=== PATIENT | female | born 1965 | race African-American/Black ===

== ENCOUNTER 2021-06-01 03:14 | Inpatient (IN) | payer OTHER ==
[~2021-06-01] VITALS: Ht 167.6 cm; Wt 94.3 kg
[2021-06-01 03:19] VITALS: BP 158/83
[2021-06-01] MEDS ORDERED: TRIAMTERENE/HCT1 CA1 PO (03:25)
[2021-06-01] MEDS ORDERED: NORVASC10 MG PO (03:25)
[2021-06-01 05:01] LABS: HEMATOCRIT 38.4 % (37.0-47.0); HEMOGLOBIN 12.8 gm/dL (12.0-15.0); MCH 30.8 pg (26.0-34.0); MCHC 33.5 g/dL (28.0-37.0); MCV 92.1 fL (80.0-100.0); RBC 4.17 mil/uL (4.20-5.00); RDW 12.5 % (10.5-14.5); WBC 5.7 thou/uL (4.0-11.0)
[2021-06-01 05:16] LABS: ANION GAP 8 mmol/L (7-16); BUN 14 mg/dL (7-18); CALCIUM 8.8 mg/dL (8.5-10.1); CHLORIDE 108 mmol/L (98-107); CO2 28 mmol/L (21-32); GLUCOSE 85 mg/dL (74-106); POTASSIUM 3.9 mmol/L (3.5-5.1); SODIUM 144 mmol/L (136-145)
[2021-06-01 05:24] LABS: ALBUMIN 3.3 g/dL (3.4-5.0); AMP/METHAMP Negative (Negative); BARBITURATES Negative (Negative); BENZODIAZEPINES Negative (Negative); COCAINE Negative (Negative); METHADONE Negative (Negative); OPIATES Negative (Negative); PCP Negative (Negative); SALICYLATE < 2.8 mg/dL (2.8-20.0); SGOT 27 U/L (15-37); SGPT 32 U/L (14-59); TOTAL BILIRUBIN 0.2 mg/dL (0.2-1.0); TOTAL PROTEIN 7.9 g/dL (6.4-8.2)
--- NOTE | 2021-06-01 09:25 | NUR ---
I WAS INFORMED BY DR MCKEE THAT [facility] WAS RECOMMENDING PLACEMENT FOR THE PT.
[2021-06-01 09:33] VITALS: BP 154/101
--- NOTE | 2021-06-01 09:34 | NUR ---
PT IS AN EMPLOYEE AT [employer] AND PT REQUESTED I CALL AND TELL THE EMAIL CAMPAIGN MANAGER THAT SHE WILL NOT BE IN TODAY. AT 0936 I TALKED THE EMAIL CAMPAIGN MANAGER EDMOND AND INFORMED HER THAT THE PT WOULD NOT BE IN TODAY. NO ADDITIONAL INFORMATION WAS PROVIDED RELATED TO THE REASON BEING IN THE ER OR ANY LONGER TERM PLANS.
--- NOTE | 2021-06-01 12:01 | NUR ---
WITH THE CHARGE NURSE APPROVAL THE PT WAS ALLOWED TO USE THE PHONE IN THE ROOM TO CALL FAMILY.
[2021-06-01 20:44] LABS: MAGNESIUM 2.2 mg/dL (1.8-2.4); PHOSPHORUS 3.4 mg/dL (2.5-4.9)
[2021-06-01 21:17] LABS: FOLIC ACID 8.5 ng/mL (8.6-58.9)
[2021-06-01 22:38] VITALS: BP 163/94
[2021-06-01] MEDS ORDERED: VENLAFAXINE HCL75 MG PO (22:51)
[2021-06-01] MEDS ORDERED: OMEPRAZOLE20 M2 PO (22:51)
[2021-06-01 23:26] VITALS: BP 158/94
--- NOTE | 2021-06-02 01:25 | NUR ---
PT ADMITTED FROM ER ALERT AND ORIENTED X4. VSS AFEBRILE. SATS WNL. WALKS WITH STEADY GAIT TO BR STANDBY ASSISTANCE. PLACED ON FALL PRECAUTIONS DUE TO ETOH W/D PRECAUTINS. SITTER 1:1 AT DOOR FOR DIRECT OBS. NO S/S ETOH W/D YET. PT STATES HAS MODERATE CASILLAS FROM COVID. NONPRODUCTIVE COUGH NOTED. PT UNLABORED ON RA. NS AT 126 INFUSING L FA. NO S/S DISTRESS PRESENTLY.
[2021-06-02 04:30] VITALS: BP 144/91
[2021-06-02 06:10] LABS: CALCIUM 8.9 mg/dL (8.5-10.1); CREATININE 0.9 mg/dL (0.6-1.0); MAGNESIUM 2.1 mg/dL (1.8-2.4); PHOSPHORUS 2.9 mg/dL (2.5-4.9); POTASSIUM 4.5 mmol/L (3.5-5.1)
--- NOTE | 2021-06-02 06:23 | NUR ---
PT IS PROGRESSINGF TOWARDS D/C GOALS. VSS AFEBRILE UNLABORED ON RA. NO C/O PAIN PRESENTLY. 1:1 SITTER OUTSIDE GLASS WINDOW AT DOOR WATCHING PT. NO SUICIDAL IDEATION NOTED TONIGHT. CIWA IS DOWN TONIGHT TO 1. NO S/S SZ ACTIVITY OR DTSTRESS NOTED.
[2021-06-02 11:36] VITALS: BP 148/86
[2021-06-02 16:00] VITALS: BP 127/82
[2021-06-02 16:32] VITALS: BP 134/82
--- NOTE | 2021-06-02 18:33 | NUR ---
ASSUMED PATIENT CARE AT 0700. A/O X4. CIW 0. NO SUICIDE IDEATION. HAS SITTER AT OUT SIDE DOOR. RA UP AD YASMEEN. PROGRESSING TOWARDS POC GOALS.
[2021-06-02 19:23] VITALS: BP 145/87
--- NOTE | 2021-06-02 22:36 | NUR ---
PT ALERT AND ORIENTED X4. VSS AFEBRILE. SR -ST ON MONITOR. DENIED PAIN. DENIED TREMORS. PT SLIGHTLY ANXIOUS AND REQUESTED ATIVAN TO HELP HER SLEEP. 1;1 sitter remains at door. PT HAS NOT EXPRESSED ANY SUICIDAL IDEATION OR PLAN TONIGHT. NO S/S TREMORS OR SZ ACTIVITY. WILL CONTINUE TO PROVIDE SAFE ENVIRONMENT FOR PT. SHE IS RESTING QUIETLY PRESENTLY.
[2021-06-03 04:10] VITALS: BP 137/92
--- NOTE | 2021-06-03 05:06 | NUR ---
PT PROGRESSING TOWARDS D/C GOALS. VSS 98.9 T. UNLABORED ON RA. C/O CASILLAS 05/21/ MEDICATED WITH TYLENOL AND ATIVEN RADHA ANXIETY. PT IS SLEEPING PRESEMTLY. NO S/S OF DISTRESS, SZ,TREMORS OR ETOHH W/D. NO VERBALIZATION OF IDEATION OR PLAN FOR SUICIDE. 1:1 SITTER REMAINS AT DOORSIDE.
[2021-06-03 07:25] VITALS: BP 145/99
[2021-06-03 11:44] VITALS: BP 147/90
[2021-06-03] MEDS ORDERED: TRAZODONE HCL50 MG PO ×2 (13:21→15:41)
[2021-06-03] MEDS ORDERED: DESVENLAFAXINE25 MG PO ×2 (13:21→15:41)
[2021-06-03] MEDS ORDERED: PREDNISONE 20 M20 M1 PO ×2 (13:21→15:41)
[2021-06-03 14:10] VITALS: BP 147/90
--- NOTE | 2021-06-03 14:57 | NUR ---
INITIAL ASSESSMENT/DISCHARGE NOTE: Received consult. KAREN reviewed chart and spoke with nursing and attending physician. Pt was admitted from home due to ETOH withdrawal and SI. Pt placed in Enhanced Isolation due to having positive COVID test. Pt has received the [employer] COVID vaccine. Pt is asymptomatic and will discharge home today. Psych consulted. 1:1 sitter discontinued. Pt to follow with with Dr. Hammond as an outpatient. Pt has experienced the deaths of her son, sister and best friend. Pt's ETOH intake has increased recently. 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 SW spoke with pt via phone. Introduced role of SW. Pt is alert/orientated x 4. Pt reports she lives at home alone. Prior to admission, pt was independent with ADLs. No use of DME. Pt confirms that she will follow up with Dr. Hammond as an outpatient. SW offered to provide additional resources. Pt declines offer. Pt requesting to complete DPOA ppwk prior to discharge. SW explained that [facility] can provide Healthcare DPOA ppwk and Healthcare Directive forms. Pt verbalized understanding. SW faxed forms to [facility]. Nursing to contact spiritual care/warehouse packer for notary services. Pt will need a cab ride home. Voucher # [id number] provided. Nursing to call [employer] COVID line: [phone] when pt is ready for discharge. No additional SW needs identified at this time, but is available to assist should needs arise.
--- NOTE | 2021-06-03 15:45 | NUR ---
ASSUMED PATIENR CARE AT 0700. A/O X4. AMIE DC 'D AT 1100. TOLERATED RA. UP AD YASMEEN. DC TO HOME WAITTING FOR HOME MEDS AND COVID VOUCHER.
== END 2021-06-03 18:59 | disposition home or self-care (01) | DRG 178 ==
LOC: ER 03:14 → EROBS 19:50 → 3W 19:50
PROVIDERS: Emergency Medicine; Nurse Practitioner Family; ADMIT Hospitalist; ATTEND Hospitalist
DX: U07.1 COVID-19 (principal); F10.130 Alcohol abuse with withdrawal, uncomplicated; F32.9 Major depressive disorder, single episode, unspecified; Y90.9 Presence of alcohol in blood, level not specified; I10 Essential (primary) hypertension; F10.120 Alcohol abuse with intoxication, uncomplicated; F41.9 Anxiety disorder, unspecified; Z79.899 Other long term (current) drug therapy; Z91.040 Latex allergy status
CPT/HCPCS: 10879